=== PATIENT | female | born 1975 | race Caucasian/White ===

== ENCOUNTER 2016-11-15 18:19 | Emergency (ER) | payer OTHER | END 2016-11-15 21:45 | disposition home or self-care (01) | DX: K29.70 Gastritis, unspecified, without bleeding (principal); R10.11 Right upper quadrant pain; E11.9 Type 2 diabetes mellitus without complications; I10 Essential (primary) hypertension; E66.9 Obesity, unspecified; Z88.8 Allergy status to other drugs, medicaments and biological substances ==

== ENCOUNTER → 2016-11-16 | Outpatient (CLI) | payer OTHER | END | disposition home or self-care (01) | DX: R13.10 Dysphagia, unspecified (principal) ==

== ENCOUNTER 2016-11-17 10:24 | Emergency (ER) | payer OTHER ==
--- NOTE | 2016-11-20 18:24 | ER ---
ADMIT: 11/17/2016 RM/LOC: ER [facility] MR#: [id number] [id number] [place], [place] [address] BEATRICE ARELLANO [address] [place] [address] Emergency Room Report SEX: F AGE: 41 : 1975 DATE: 11/17/2016 TIME: 1024 hours. Please refer to my T-sheet for complete H and P. HISTORY OF PRESENT ILLNESS: Briefly, patient is a 41-year-old, who comes with abdominal pain, it has been there for three days. She was seen in the ER and had a big workup, looked okay. She actually was seen by Dr. Hawkins of Surgery. She has a lap band and he took all the fluid out of it. She is still having this right upper quadrant pain, 04/03, she said she has minimal relief, but she has been nauseous and vomited once. PHYSICAL EXAMINATION: VITAL SIGNS: Vital signs stable. HEENT: Grossly normal. ABDOMEN: Tender in the right upper quadrant. EMERGENCY DEPARTMENT COURSE: I gave her a liter of normal saline bolus, Zofran 4 IV, morphine 4 IV. She was feeling better. Her CBC was normal. Chemistries normal except glucose 336. Lipase is normal. All liver functions were normal. I did an ultrasound revealed gallstones, sludge, and a positive Summers's sign, but no other abnormalities. No thickened wall. No pericholecystic fluid. I talked to Dr. Hawkins. He would see her in the clinic and talk about her gallbladder. ASSESSMENT: 1. Abdominal pain. 2. Biliary colic. PLAN: Follow up with [facility]. Return if worse. Low-fat diet. Jono Lauren MD/ moira JOB #: [id number] CC: Jono Lauren MD, Attending Physician Traci Das, Family Physician MD Traci Solano
== END 2016-11-17 12:20 | disposition home or self-care (01) ==
LOC: ER 10:24
DX: K80.70 Calculus of gallbladder and bile duct without cholecystitis without obstruction (principal); I10 Essential (primary) hypertension; E11.9 Type 2 diabetes mellitus without complications; Z79.84 Long term (current) use of oral hypoglycemic drugs

== ENCOUNTER 2016-11-23 09:59 | Day surgery (SDC) | payer OTHER ==
[~2016-11-23] VITALS: Ht 172.7 cm; Wt 126.5 kg
--- NOTE | 2016-11-30 13:27 | OR ---
ADMIT: 11/23/2016 RM/LOC: [facility] MR#: [id number] [address] BEATRICE ARELLANO [address] [place] [address] Operative/Delivery Room Report SEX: F AGE: 41 : 1975 SURGERY DATE: 11/23/2016 SURGEON: Janes Hawkins MD PREOPERATIVE DIAGNOSES: 1. Chronic cholecystitis and cholelithiasis. 2. Failure of the lap band, question of slippage. POSTOPERATIVE DIAGNOSES: 1. Chronic cholecystitis and cholelithiasis. 2. Failure of the lap band, question of slippage. FINAL PATHOLOGY: Pending. PROCEDURES: Laparoscopic cholecystectomy and removal of lap band. SPECIAL AGENT FBI: Andrez Aceves MD. ANESTHESIA: General endotracheal tube anesthesia. ESTIMATED BLOOD LOSS: 25 mL or less. INDICATION FOR PROCEDURE: Please see H and P. After the risks, benefits, possible complications, and the alternatives have been explained, and informed consent had been obtained, the patient was taken back to the operating room, underwent general endotracheal tube anesthesia, and the surgical field was prepped and draped in a sterile manner. A supraumbilical incision was made. The Veress needle was inserted. The abdomen was insufflated with CO2. Once there was adequate insufflation, a 5- mm port was placed. The camera was placed through this port site. Under direct visualization, placed a 10-mm epigastric and two 5-mm right upper quadrant ports. The gallbladder, as you can seen see in the first set of pictures, definitely chronically irritated, covered with adhesions, these were all slowly cleaned down. Dissected out the cystic duct coming out nicely anteriorly, actually a nice long cystic duct. It was clipped proximally, distally, and divided. Then there was an anterior and posterior artery, these were both clipped proximally, distally, and divided. The gallbladder was then removed from the liver bed using electrocautery Endoshears, placed in EndoCatch bag as seen in picture #3 and removed through the epigastric port site. Irrigated much irrigation as possible as you can see in picture 4. Liver bed appeared dry. Cleaned up any saline there and once that was done, I was able to kind of maneuver my 10 mm port over to the patient's left side. We placed one more 5 mm left upper quadrant port, got liver retractor and it was raised. You can see in the picture, she is just basically failed with her band. I put a little fluid intake, fluid off and we were just unable to get it adjusted to where works adequately for her without vomiting or throwing up ADMIT: 11/23/2016 RM/LOC: [facility] MR#: [id number] [address] [address] BEATRICE ARELLANO [address] [place] [address] Operative/Delivery Room Report SEX: F AGE: 41 : 1975 or losing weight and basically my feeling is that has failed at this point, and so we went ahead and removed it. I was able to un-buckle it, but there was enough of kind of tissue with the buckle. I had to cut the band in half, so I could pull each end out. Then using the 10 mm port site, I was able to grasp both pieces and remove it through there. Then cut down at the port site and removed the stitches there. Maintained hemostasis with electrocautery. So the complete band was removed at this point. We closed the fascia of the epigastric port site with an 0-Polysorb suture using the suture passer. All the ports, we injected with 0.5% Marcaine. Then, all the ports were removed. The skin was all closed with 4-0 Monocryl. She tolerated it well. She was being extubated when I left the room. She was in stable and satisfactory condition with all needle and lap counts correct x2. Janes Hawkins MD/ moira JOB #: [id number] CC: Janes Hawkins, Attending Physician Traci Das, Family Physician
== END 2016-11-23 16:20 | disposition home or self-care (01) ==
LOC: SSS 09:59
PROC: 0DP64CZ Removal of Extraluminal Device from Stomach, Percutaneous Endoscopic Approach (ICD-10-PCS; principal; 2016-11-23)
PROC: 0FT44ZZ Resection of Gallbladder, Percutaneous Endoscopic Approach (ICD-10-PCS; principal; 2016-11-23)
DX: K80.10 Calculus of gallbladder with chronic cholecystitis without obstruction (principal); K95.09 Other complications of gastric band procedure; I10 Essential (primary) hypertension; E66.9 Obesity, unspecified; E11.9 Type 2 diabetes mellitus without complications; D64.9 Anemia, unspecified; F32.9 Major depressive disorder, single episode, unspecified; Z98.890 Other specified postprocedural states; Z79.899 Other long term (current) drug therapy